=== PATIENT | female | born 1965 | race Two or more races ===

== ENCOUNTER 2019-07-16 04:59 | Emergency (ER) | payer OTHER ==
[~2019-07-16] VITALS: Ht 162.6 cm; Wt 53.1 kg
[~2019-07-16 04:59] MED LIST: CELEBREX200MG PO; IBUPROFEN800 MG PO
[2019-07-16] MEDS ORDERED: SIMVASTATIN5 MG (05:30)
== END 2019-07-16 09:21 | disposition home or self-care (01) ==
LOC: ER 04:59
DX: K11.21 Acute sialoadenitis (principal)

== ENCOUNTER 2020-07-07 18:04 | Emergency (ER) | payer OTHER ==
[~2020-07-07] VITALS: Ht 162.6 cm; Wt 51.3 kg
[~2020-07-07 18:04] MED LIST changes: +SIMVASTATIN5 MG
[2020-07-07] MEDS ORDERED: NAPROXEN375 MG PO (23:59)
[2020-07-07] MEDS ORDERED: SKELAXIN800 MG PO (23:59)
== END 2020-07-08 00:52 | disposition home or self-care (01) ==
LOC: ER 18:04
DX: K11.21 Acute sialoadenitis (principal); M26.69 Other specified disorders of temporomandibular joint

== ENCOUNTER 2021-03-03 08:36 | Emergency (ER) | payer OTHER ==
[~2021-03-03] VITALS: Ht 162.6 cm; Wt 53.5 kg
[~2021-03-03 08:36] MED LIST changes: +NAPROXEN375 MG PO; +SKELAXIN800 MG PO
[2021-03-03] MEDS ORDERED: KETO10TA2 PO (12:24)
[2021-03-03] MEDS ORDERED: ORPHENADRINE C100 MG PO (12:24)
== END 2021-03-03 12:31 | disposition home or self-care (01) ==
LOC: ER 08:36
DX: S40.012A Contusion of left shoulder, initial encounter (principal); M79.602 Pain in left arm; M54.2 Cervicalgia; W01.0XXA Fall on same level from slipping, tripping and stumbling without subsequent striking against object, initial encounter; Y93.89 Activity, other specified; Y92.512 Supermarket, store or market as the place of occurrence of the external cause; Y99.8 Other external cause status

== ENCOUNTER 2021-05-31 08:00 | Outpatient (CLI) | payer OTHER ==
[~2021-05-31 08:00] MED LIST changes: +KETO10TA2 PO; +ORPHENADRINE C100 MG PO
== END 2021-05-31 08:30 | disposition home or self-care (01) ==
LOC: PPH VACUNA 08:00
PROVIDERS: ATTEND Emergency Medicine Pediatric Emergency Medicine
DX: Z23 Encounter for immunization (principal)